=== PATIENT | male | born 1940 | race Caucasian/White ===

== ENCOUNTER → 2019-05-24 07:38 | Outpatient (CLI) | payer MEDICARE, SELFPAY ==
--- NOTE | ~2019-05-24 | US_ITS ---
US abdomen complete DATE: 05/24/2019 08:43 INDICATION: Constipation TECHNIQUE: Real-time imaging of the abdomen COMPARISON: None FINDINGS: No hepatic space-occupying mass lesion. Normal hepatic portal venous flow direction. The pancreas is obscured by bowel gas. No evidence of gallstones, gallbladder wall thickening or abnormal pericholecystic fluid collection. There is a 3.3 x 4.2 x 4.5 cm simple cyst of the right kidney. There is a 2.1 x 2.7 x 3.0 centimeter left renal cyst. There is a 2.4 x 1.8 x 1.8 cm left renal cyst. No hydronephrosis. Normal splenic size. The abdominal aorta is of normal caliber. The inferior vena cava is unremarkable. IMPRESSION: Bilateral renal cysts Reviewed, dictated and finalized at [facility]. Reviewed, dictated and finalized at [facility]. [employer] IMPRESSION: Bilateral renal cysts
== END ==
PROVIDERS: Visit Provider Nurse Practitioner
DX: R19.5 Other fecal abnormalities (principal); N28.1 Cyst of kidney, acquired
CPT/HCPCS: 76700

== ENCOUNTER → 2020-08-12 01:12 | Outpatient (CLI) | payer MEDICARE, SELFPAY ==
[2020-08-12 18:55] LABS: SARS-CoV-2 RNA PCR Negative
== END ==
PROVIDERS: PCP Internal Medicine; Visit Provider Internal Medicine Gastroenterology
DX: R50.9 Fever, unspecified (principal); Z20.822 Contact with and (suspected) exposure to COVID-19
CPT/HCPCS: C9803; U0003; U0005

== ENCOUNTER 2020-08-15 05:37 | Day surgery (SDC) | payer MEDICARE, SELFPAY ==
[2020-08-07 09:14] VITALS: BMI 21.8
--- NOTE | 2020-08-15 10:02 | WPDANESEPPF ---
Anes - Initial Pre Proc Eval Procedure: Operation Date: 08/15/20 11:00 Proposed Procedures p Colonoscopy - Salbador Ott MD Date/Time: 08/15/20 10:02 Surgeon: Salbador Ott MD Pre Op Diagnosis: change in bowel habits, weightloss Patient Data Age: 80 Gender: M Height: 5 ft 11 in Weight: 71 kg Allergies Allergy/AdvReac Type Severity Reaction Status Date / Time No Known Allergies Allergy Unknown Verified 08/15/20 10:03 Home Medications Medication Instructions Recorded Confirmed Type mupirocin 2 % topical ointment 1 applic TOPICAL TID #22 g 06/02/20 08/07/20 Rx hydrocortisone 2.5 % topical cream 1 applic RECTAL DAILY PRN #30 g 07/08/20 08/07/20 Rx with perineal applicator hydrochlorothiazide 25 mg tablet 25 mg PO DAILY #90 tablet 07/11/20 08/07/20 Rx hydrocodone 7.5 mg-acetaminophen 0.5 tablet PO Q8H PRN #45 tablet 07/18/20 08/07/20 Rx 325 mg tablet amlodipine 10 mg tablet 10 mg PO DAILY #90 tablet 07/29/20 08/07/20 Rx ezetimibe 10 mg tablet See Rx Instructions .ROUTE 07/29/20 08/07/20 Rx .COMPLEX #90 tablet diazepam 5 mg tablet 5 mg PO ONCE PRN #90 tablet 08/12/20 Rx Patient hx anesthesia problems: none Family hx anesthesia problems: none PMFSH Past Medical History Medical History (Updated 08/15/20 @ 09:59 by Ming Bentley MD) Cardiac pacemaker in situ Chronic atrial fibrillation Chronic low back pain with sciatica Essential (primary) hypertension Mixed hyperlipidemia Family History Family History Mother Cerebrovascular accident Family history of cardiovascular disease, Onset Age: 58 Sibling Family history of coronary artery disease Diabetes mellitus Family history of cardiovascular disease Family history of malignant neoplasm Father Family history of lung disease Social History Social History (Updated 07/08/20 @ 11:55 by Antonia Pena CMA) Smoking packs per day: 0.5 Smoking cigarettes per day: 10.0 Smoking status: Former smoker Smoking end date: 04/04/80 Alcohol intake: current Drinks per week: 2 Substance use: never Substance use type: does not use Living arrangements: with friend(s) Spiritual care concerns: No Anes - Eval Final PreProcedure Day of Procedure 08/15/20 10:02 Patient weight: normal Heart: irregular rhythm Lungs: clear to auscultation Airway: Mallampati scale class II Neurological: alert and oriented Last oral intake: >/= 8 hours ASA classification: III Emergent: no Anesthetic plan: proceed Anesthesia type and monitoring: general GIVS and standard monitoring Informed Consent: The patient's anesthetic plan and its attendant risks and benefits were discussed with the patient/family/POA. Questions were solicited and answers provided to the satisfaction of the patient/family/POA.
[2020-08-15 10:06] VITALS: BP 134/42; PULSE 70; RESP 16; TEMP 36.2; O2SAT 95; BMI 21.0
[2020-08-15] MEDS: LACTATED RINGERS 1,000 ML 150 ML IV CONT (10:09)
--- NOTE | 2020-08-15 10:51 | PM.HPGS ---
History of Present Illness History of Present Illness Consent: Risks, benefits, and alternatives have been discussed and questions answered. Patient agrees to proceed with procedure. Chief complaint: change in bowel habits, weightloss Narrative: Oscar Gonzalez is a 80 year old male with rectal pain and change stool caliber, last colonoscopy 2010 Review of Systems Constitutional: Constitutional: Denies headache(s) and Denies weakness Eyes: Eyes: Denies blurry vision ENT: Reports Normal hearing present, Denies headache(s) and Denies neck pain Cardiovascular: Cardiovascular: Denies chest pain and Denies dyspnea Respiratory: Respiratory: Denies dyspnea Gastrointestinal: Gastrointestinal: Reports no additional gastrointestinal complaints Genitourinary: Genitourinary: Denies dysuria Musculoskeletal: Musculoskeletal: Denies neck pain Integumentary/Breasts: Skin/Breast: Denies dry skin Neurologic: Reports Normal hearing present, Denies headache(s) and Denies weakness Psychiatric: Psychiatric: Denies anxiety Endocrine: Endocrine: Denies change in body appearance Hematologic/Lymphatic: Hematologic/Lymphatic: Denies easy bleeding Allergic/Immunologic: Allergic/Immunologic: Denies urticaria PMF Past Medical History Medical History (Updated 08/15/20 @ 09:59 by Ming Bentley MD) Cardiac pacemaker in situ Chronic atrial fibrillation Chronic low back pain with sciatica Essential (primary) hypertension Mixed hyperlipidemia Family History Family History Mother Cerebrovascular accident Family history of cardiovascular disease, Onset Age: 58 Sibling Family history of coronary artery disease Diabetes mellitus Family history of cardiovascular disease Family history of malignant neoplasm Father Family history of lung disease Social History Social History (Updated 07/08/20 @ 11:55 by Antonia Pena [facility]) Smoking packs per day: 0.5 Smoking cigarettes per day: 10.0 Smoking status: Former smoker Smoking end date: 04/04/80 Alcohol intake: current Drinks per week: 2 Substance use: never Substance use type: does not use Living arrangements: with friend(s) Spiritual care concerns: No Meds Home Medications and Allergies Home Medications Medication Instructions Recorded Confirmed Type mupirocin 2 % topical ointment 1 applic TOPICAL TID #22 g 06/02/20 08/07/20 Rx hydrocortisone 2.5 % topical cream 1 applic RECTAL DAILY PRN #30 g 07/08/20 08/07/20 Rx with perineal applicator hydrochlorothiazide 25 mg tablet 25 mg PO DAILY #90 tablet 07/11/20 08/07/20 Rx hydrocodone 7.5 mg-acetaminophen 0.5 tablet PO Q8H PRN #45 tablet 07/18/20 08/07/20 Rx 325 mg tablet amlodipine 10 mg tablet 10 mg PO DAILY #90 tablet 07/29/20 08/07/20 Rx ezetimibe 10 mg tablet See Rx Instructions .ROUTE 07/29/20 08/07/20 Rx .COMPLEX #90 tablet diazepam 5 mg tablet 5 mg PO ONCE PRN #90 tablet 08/12/20 08/15/20 Rx Allergies Allergy/AdvReac Type Severity Reaction Status Date / Time No Known Allergies Allergy Unknown Verified 08/15/20 10:03 Vital Signs Vital Signs - 24 hr 08/15/20 10:06 Temperature 97.1 F L Pulse Rate 70 Respiratory Rate 16 Blood Pressure 134/42 L Pulse Oximetry 95 Exam Const: General: comfortable and no acute distress HENMT: General nose exam: Normal nares present Eyes: General: appearance normal, both eyes and all related structures Neck: Neck: no JVD Resp: Auscultation: clear to auscultation bilaterally Cardio: Rate: regular rate Rhythm: regular rhythm GI: Inspection: non-distended GI Palp: Yes Soft to palpation Skin: General skin exam: normal color Neuro: General: gait normal Speech: normal speech Extrem: General: normal to inspection Psych: Mental Status: mental status grossly normal Assessment and Plan Assessment and plan (1) Rectal pain: Code(s): K62.8
[2020-08-15 11:12] VITALS: BP 105/51; PULSE 62; RESP 16; O2SAT 99
[2020-08-15 11:20] VITALS: BP 112/48; PULSE 61; RESP 25; O2SAT 99
[2020-08-15 11:31] VITALS: BP 116/53; PULSE 61; RESP 22; O2SAT 99
== END 2020-08-15 11:42 | disposition home or self-care (01) ==
PROVIDERS: PCP Internal Medicine; Visit Provider Internal Medicine Gastroenterology
PROC: 0DJD8ZZ Inspection of Lower Intestinal Tract, Via Natural or Artificial Opening Endoscopic (ICD-10-PCS; CPT 45378; principal; 2020-08-15 11:00)
DX: R19.4 Change in bowel habit (principal); D12.5 Benign neoplasm of sigmoid colon; K62.89 Other specified diseases of anus and rectum; R63.4 Abnormal weight loss; K57.30 Diverticulosis of large intestine without perforation or abscess without bleeding; K64.8 Other hemorrhoids; E78.2 Mixed hyperlipidemia; I48.20 Chronic atrial fibrillation, unspecified; M54.40 Lumbago with sciatica, unspecified side; I10 Essential (primary) hypertension; Z87.891 Personal history of nicotine dependence; Z95.0 Presence of cardiac pacemaker
CPT/HCPCS: 45385; 88305; J2001; J2704; J7120

== ENCOUNTER 2021-01-02 08:15 | Outpatient (CLI) | payer MEDICARE, SELFPAY ==
--- NOTE | ~2021-01-02 | CT_ITS ---
EXAMINATION: CT lumbar spine wo con EXAM DATE: 01/02/2021 08:59 INDICATION: M54.42 - Lumbago with sciatica, left side. Numbness down left leg. Low back pain. TECHNIQUE: Spiral CT of the lumbar spine was performed without contrast. Axial, coronal and sagittal images lumbar spine were reviewed. The dose-length product (DLP) for this examination was 285.92 mG y-cm. The exposure was tailored according to patient size (auto mA exposure control), and iterative reconstruction (ASIR) was used as additional dose reduction technique. Comparison is made to prior e xamination from 12/23/2014. 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 There are no acute fractures identified. No spondylolysis. There is moderate to severe loss of the disc height at L5-S1, moderate from L2 through L5. There is a few millimeters retrolisthesis L5 on S1. The vertebral bodies are otherwise aligned. Mild diffuse loss of vertebral b aung heights. Paraspinal soft tissue is unremarkable. Level by level evaluation: T12-L1: There is a mild diffuse disc bulge. Facet arthropathy: Mild. Neural foraminal stenosis: No stenosis. Central canal stenosis: No stenosis. L1-L2: There is a mild to moderate diffuse disc bulge. Facet arthropathy: Mild to moderate. Neural foraminal stenosis: Mild bilateral. Central canal stenosis: Mild. L2-L3: There is a moderate diffuse disc bulge. Facet arthropathy: Moderate. Neural foraminal stenosis: Mild bilateral. Central canal stenosis: Mild to moderate. L3-L4: There is a moderate diffuse disc bulge. Facet arthropathy: Moderate. Neural foraminal stenosis: Mild to moderate bilateral. Central canal stenosis: Mild to moderate. L4-L5: There is a moderate diffuse disc bulge. Facet arthropathy: Moderate to severe. Neural foraminal stenosis: Moderate right, mild to moderate left. Central canal stenosis: Moderate. L5-S1: There is a moderate diffuse disc bulge. Facet arthropathy: Moderate to severe. Neural foraminal stenosis: Moderate bilateral, left greater than right. Central canal stenosis: Mild to moderate. Mild progression spondylosis compared to 2015. 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 Reviewed, dictated and finalized at [facility].
== END 2021-01-02 08:16 | disposition home or self-care (01) ==
PROVIDERS: PCP Internal Medicine; Visit Provider Internal Medicine
DX: M54.42 Lumbago with sciatica, left side (principal); G89.29 Other chronic pain; M47.896 Other spondylosis, lumbar region
CPT/HCPCS: 72131

== ENCOUNTER → 2021-08-21 12:58 | Outpatient (CLI) | payer MEDICARE, SELFPAY ==
--- NOTE | ~2021-08-21 | XR_ITS ---
EXAMINATION: XR hand LT min 3V DATE: 08/21/2021 13:12 INDICATION: Left hand pain. TECHNIQUE: 3 views of left hand were obtained. COMPARISON: Left hand radiographs 06/23/2014 FINDINGS: Bone alignment is normal. No fracture. There is severe osteoarthritis of distal radioulnar joint and first carpometacarpal joint. There is severe osteoarthritis of first-third metacarpophalang eal joints and moderate osteoarthritis of fourth metacarpophalangeal joint. There is osteoarthritis o f all of the interphalangeal joints, severe at first interphalangeal joint and second and third proxi mal and distal interphalangeal joints. IMPRESSION: 1. Polyarticular osteoarthritis. Reviewed, dictated and finalized at [facility].
== END ==
PROVIDERS: PCP Internal Medicine; Visit Provider Internal Medicine
DX: M19.042 Primary osteoarthritis, left hand (principal)
CPT/HCPCS: 73130